=== PATIENT | male | born 1990 | race American Indian/Alaskan Native ===

== ENCOUNTER 2020-07-11 00:28 | Emergency (ER) | payer SELFPAY ==
[2020-07-11] MEDS ORDERED: SUMAtriptan SUCCINATE 25 MG TAB PO ONE (00:53)
[2020-07-11] MEDS ORDERED: diphenhydrAMINE 25 MG CAP PO ONE (00:53)
[2020-07-11] MEDS ORDERED: METOCLOPRAMIDE 10 MG TAB PO ONE (00:53)
--- NOTE | 2020-07-11 00:58 | Emergency Department Report ---
ED Headache HPI - General Chief Complaint: Headache Stated Complaint: HEADACHE Time Seen by Provider: 07/11/20 00:51 - History of Present Illness Initial Comments: Patient is a 30-year-old male presents emergency room with complaints of a headache for 2 weeks. He states that it is frontal and behind the bilateral eyes. He states that he has associated photophobia and nausea. He states he has had 2 episodes of vomiting over the last 2 weeks. He states that he takes czjs-chg-nnrapmr medication with relief but the headache returns. He states that he had the same headaches approximately a year ago. He states that his eye s were also water and his nose begins to run. He denies any fever, vision changes, numbness, weakness, speech disturbance, gait disturbance, neck stiffness, any injury. No past medical history. No allergies to medications. Allergies/Adverse Reactions: Allergies No Known Allergies Allergy (Verified 07/11/20 00:56) Home Medications: Ambulatory Orders SUMAtriptan SUCCINATE [Imitrex] 25 mg PO Q2HR PRN #12 tablet 07/11/20 ED Review of Systems ROS: Stated complaint: HEADACHE Other details as noted in HPI Comment: All other systems reviewed and negative ED Past Medical Hx - Past Medical History Previous Medical History?: No - Surgical History Past Surgical History?: No - Medications Home Medications: Home Medications Medication Instructions Recorded Confirmed Last Taken Type SUMAtriptan SUCCINATE [Imitrex] 25 mg PO Q2HR PRN #12 tablet 07/11/20 Unknown Rx ED Physical Exam - General Limitations: No Limitations General appearance: alert, in no apparent distress - Head Head exam: Present: atraumatic, normocephalic - Eye Eye exam: Present: normal appearance, PERRL, EOMI. Absent: periorbital swelling, periorbital tenderness Pupils: Present: normal accommodation - ENT ENT exam: Present: mucous membranes moist - Neck Neck exam: Present: normal inspection, full ROM. Absent: tenderness, meningismus - Respiratory Respiratory exam: Present: normal lung sounds bilaterally. Absent: respiratory distress, wheezes, rales, rhonchi, stridor, chest wall tenderness, accessory muscle use, decreased breath sounds, prolonged expiratory - Cardiovascular Cardiovascular Exam: Present: regular rate, normal rhythm, normal heart sounds. Absent: systolic murmur, diastolic murmur, rubs, gallop - Neurological Exam Neurological exam: Present: alert, oriented X3, CN II-XII intact, normal gait. Absent: motor sensory deficit - Expanded Neurological Exam Expanded Patient oriented to: Present: person, place, time Speech: Present: fluid speech Cranial nerves: EOM's Intact: Normal, Gag Reflex: Normal Cerebellar function: Finger to Nose: Normal, Heel to [place]: Normal, Romberg: Normal Sensory exam: Upper Extremity Light Touch: Normal, Upper Extremity Pin Prick: Normal, Upper Extremity Temperature: Normal, UE 2 Point Discrimination: Normal, Lower Extremity Light Touch: Normal, Lower Extremity Pin Prick: Normal, Lower Extremity Temperature: Normal, LE 2 Point Discrimination: Normal Motor strength exam: RUE: 5, LUE: 5, RLE: 5, LLE: 5 Best Eye Response ([place]): (4) open spontaneously Best Motor Response ([place]): (6) obeys commands Best Verbal Response ([place]): (5) oriented [place] Total: 15 - Psychiatric Psychiatric exam: Present: normal affect, normal mood - Skin Skin exam: Present: warm, dry, intact ED Course Vital Signs 07/11/20 00:47 Temperature 97.9 F Pulse Rate 67 Respiratory 18 Rate Blood Pressure 137/95 O2 Sat by Pulse 96 Oximetry ED Medical Decision Making - Medical Decision Making Patient is a 30-year-old male presents emergency room with complaints of a headache for 2 weeks. He states that it is frontal and behind the bilateral eyes. He states that he has associated photophobia and nausea. He states he has had 2 episodes of vomiting over the last 2 weeks. He states that he takes nbke-spx-gvtcgmd medication with relief but the headache returns. He states that he had the same headaches approximately a year ago. He states that his eyes were also water and his nose begins to run. He denies any fever, vision c hanges, numbness, weakness, speech disturbance, gait disturbance, neck stiffness, any injury. No past medical history. No allergies to medications. Vitals are stable. No focal neuro deficits on exam, no meningeal signs, no thunderclap headache, no trauma. symptoms appear most consistent with cluster headache. Patient given Imitrex, Reglan, Benadryl while in the emergency department and headache proved and he is feeling much better ready to go home. Patient given prescription for Imitrex. Patient be given primary care follow- up. Discussed the importance of follow-up. Discussed strict return precautions. Advised patient to please take medication as prescribed as needed. Increase your water intake. Follow-up with your primary care doctor. Return emergency room for new or worsening symptoms. Critical care attestation.: If time is entered above; I have spent that time in minutes in the direct care of this critically ill patient, excluding procedure time. ED Disposition Clinical Impression: Headache Qualifiers: Headache type: unspecified Headache chronicity pattern: acute headache Intractability: not intractable Qualified Code(s): R51.9 - Headache, unspecified Disposition: DC-01 TO HOME OR SELFCARE Is pt being admited?: No Does the pt Need Aspirin: No Condition: Stable Instructions: Cluster Headache Additional Instructions: please take medication as prescribed as needed. Increase your water intake. Follow-up with your primary care doctor. Return emergency room for new or worsening symptoms. Prescriptions: SUMAtriptan SUCCINATE [Imitrex] 25 mg PO Q2HR PRN #12 tablet PRN Reason: headache Referrals: MAHOGANY MARVIN MD [Staff Physician] - 3-5 Days [facility] [Provider Group] - 3-5 Days JOSÉ ANTONIO MUELLER MD [Staff Physician] - 3-5 Days Print Language: [place] ISLAND[place]
[2020-07-11 01:50] VITALS: BP 136/90
== END 2020-07-11 01:57 | disposition home or self-care (01) ==
LOC: ED 00:28
DX: R51.9 Headache, unspecified (principal); R11.2 Nausea with vomiting, unspecified; H53.149 Visual discomfort, unspecified; Z79.899 Other long term (current) drug therapy
CPT/HCPCS: 99282

== ENCOUNTER 2020-07-13 14:45 | Emergency (ER) | payer SELFPAY ==
[2020-07-13 15:11] VITALS: BP 116/75
--- NOTE | 2020-07-13 15:23 | Emergency Department Report ---
ED Headache HPI - General Chief Complaint: Headache Stated Complaint: HEADACHES Source: patient Exam Limitations: no limitations - History of Present Illness Initial Comments: 30-year-old -German male presents to the emergency room for persistent headache that he rates a 10 out of 10 and not responding to Imitrex or jdnv-mtg-fjgzmzk medication. Patient was seen here 2 days ago and referred to a primary care provider as well as a neurologist with has not made an appointment for the neurologist. Reports has appointment with Dr. Byron Fisher on Wednesday. Patient denies any weakness. He reported he vomited 1 time last night. He complains of blurred vision breaking out in sweats. He states that he does take medicine for his sinuses but that is not helping. Patient denies any new weaknesses. But reports that he is not able to work secondary to the constant persistent headache. Patient states that the headache will improve a little with the Imitrex but comes right back within 2 to 3 hours. Head Injury Location: global Recent Head Trauma: no recent headache/trauma, frequent headaches Associated Symptoms: flushing, nausea/vomiting, vision changes Allergies/Adverse Reactions: Allergies No Known Allergies Allergy (Verified 07/11/20 00:56) Home Medications: Ambulatory Orders SUMAtriptan SUCCINATE [Imitrex] 25 mg PO Q2HR PRN #12 tablet 07/11/20 ED Review of Systems ROS: Stated complaint: HEADACHES Other details as noted in HPI Comment: All other systems reviewed and negative ED Past Medical Hx - Past Medical History Previous Medical History?: No - Surgical History Past Surgical History?: No - Social History Smoking Status: Never Smoker - Medications Home Medications: Home Medications Medication Instructions Recorded Confirmed Last Taken Type SUMAtriptan SUCCINATE [Imitrex] 25 mg PO Q2HR PRN #12 tablet 07/11/20 Unknown Rx ED Physical Exam - General Limitations: No Limitations General appearance: alert, in no apparent distress - Head Head exam: Present: atraumatic, normocephalic - Eye Eye exam: Present: normal appearance - Neck Neck exam: Present: full ROM - Respiratory Respiratory exam: Absent: accessory muscle use - Cardiovascular Cardiovascular Exam: Present: regular rate, normal rhythm. Absent: systolic murmur, diastolic murmur, rubs, gallop - Expanded Neurological Exam Expanded Cranial nerves: EOM's Intact: Normal, Gag Reflex: Normal, Tongue Deviation: Normal, Nystagmus: Normal, Facial Sensation: Normal, Facial Palsy with Forehead Movement: Normal, Facial Palsy without Forehead Movement: Normal Cerebellar function: Finger to Nose: Normal, Heel to [place]: Normal, Romberg: Normal Upper motor neuron: Ruddy Neglect: Normal, Pronator Drift: Normal, Sensory Extinction: Normal Sensory exam: Upper Extremity Light Touch: Normal, Upper Extremity Pin Prick: Normal, Upper Extremity Temperature: Normal, UE 2 Point Discrimination: Normal, Lower Extremity Light Touch: Normal, Lower Extremity Pin Prick: Normal, Lower Extremity Temperature: Normal, LE 2 Point Discrimination: Normal Motor strength exam: RUE: 5, LUE: 5, RLE: 5, LLE: 5 Best Eye Response ([place]): (4) open spontaneously Best Motor Response ([place]): (6) obeys commands Best Verbal Response ([place]): (5) oriented [place] Total: 15 - Psychiatric Psychiatric exam: Present: normal affect, normal mood - Skin Skin exam: Present: warm, dry, intact, normal color. Absent: rash ED Course Vital Signs 07/13/20 15:07 Temperature 98.1 F Pulse Rate 67 Respiratory 20 Rate Blood Pressure 116/75 O2 Sat by Pulse 99 Oximetry ED Medical Decision Making - Lab Data Result diagrams: 07/13/20 15:39 07/13/20 15:39 - Radiology Data Radiology results: report reviewed Patient: CARLOS GOMES MR#: [id number] : 1990 Acct:[id number] Age/Sex: 30 / M ADM Date: 07/13/20 Loc: ED Attending Dr: Ordering Physician: DAVEY NUNN Date of Service: 07/13/20 Procedure(s): CT head/brain wo con Accession Number(s): [id number] cc: DAVEY NUNN CT head/brain wo con INDICATION: Persistent headache. TECHNIQUE: Routine CT head without contrast. All CT scans at this location are performed using CT dose reduction for ALARA by means of automated exposure control. COMPARISON: None. FINDINGS: BRAIN / INTRACRANIAL CONTENTS: No acute hemorrhage, mass effect, midline shift, or hydrocephalus. No appreciable acute large territorial or lacunar infarct. No chronic infarct or focal atrophy. Normal brain volume and ventricular/sulcal size for age. ORBITS: No significant abnormality of visualized orbits. SINUSES / MASTOIDS: There is extensive fluid and mucosal thickening throughout the paranasal sinuses. There is polypoid mucosal thickening throughout the nasal cavity. There is no appreciable sinus patient's or bone structure. ADDITIONAL FINDINGS: None. IMPRESSION: 1. No acute intracranial abnormality. 2. Extensive polypoid mucosal thickening throughout the paranasal sinuses and nasal cavity likely indicating chronic sinusitis. Underlying acute sinusitis would be difficult to exclude radiographi margot. Signer Name: Michel Friend MD Signed: 07/13/2020 4:47 PM Workstation Name: [id number] Transcribed By: JOSSUE Dictated By: Michel Friend MD Electronically Authenticated By: Michel Friend MD Signed Date/Time: 07/13/201646 DD/ 44 TD/TT: - Medical Decision Making 30-year-old -German male presents to the emergency room for persistent headache that he rates a 10 out of 10 and not responding to Imitrex or vvko-rhn-yhshytv medication. Patient was seen here 2 days ago and referred to a primary care provider as well as a neurologist with has not made an appointment for the neurologist. Reports has appointment with Dr. Byron Fisher on Wednesday. Patient denies any weakness. He reported he vomited 1 time last night. He complains of blurred vision breaking out in sweats. He states that he does take medicine for his sinuses but that is not helping. Patient denies any new weaknesses. But reports that he is not able to work secondary to the constant persistent headache. Patient states that the headache will improve a little with the Imitrex but comes right back within 2 to 3 hours. CBC, CMP, CT of head without contrast. Critical care attestation.: If time is entered above; I have spent that time in minutes in the direct care of this critically ill patient, excluding procedure time. ED Disposition Clinical Impression: Headache, Chronic sinusitis Disposition: - TO HOME OR SELFCARE Is pt being admited?: No Does the pt Need Aspirin: No Condition: Stable Instructions: Sinus Headache, Frfu-di-Fwqn, Sinusitis, Adult, Baoo-wg-Szcs Additional Instructions: CT scan is negative for any masses head bleed. It does show that you have chronic sinusitis. You need to use sqtv-emn-awpkthp Flonase take dbgo-pgv-fmtjomi Zyrtec's or Claritin. Follow-up with your primary care provider and a ear nose and throat provider. Referrals: PRIMARY CARE, [Primary Care Provider] - 3-5 Days DUANE SALGUERO MD [Staff Physician] - 3-5 Days MAHOGANY MARVIN MD [Staff Physician] - 3-5 Days Forms: Work/School Release Form(ED)
[2020-07-13 16:00] LABS: Basophils # (Auto) 0.1 K/mm3 (0.0-0.1); Basophils % (Auto) 0.8 % (0.0-1.8); Eosinophils # (Auto) 0.8 K/mm3 (0.0-0.4); Eosinophils % (Auto) 12.2 % (0.0-4.3); Hematocrit 42.2 % (35.5-45.6); Hemoglobin 14.1 gm/dl (11.8-15.2); Lymphocytes # (Auto) 2.2 K/mm3 (1.2-5.4); Lymphocytes % (Auto) 33.7 % (13.4-35.0); Mean Corpuscular HGB Conc 34 % (32-34); Mean Corpuscular Volume 98 fl (84-94); Monocytes # (Auto) 0.3 K/mm3 (0.0-0.8); Monocytes % (Auto) 4.2 % (0.0-7.3); Platelet Count 179 K/mm3 (140-440); Red Blood Count 4.31 M/mm3 (3.65-5.03); Red Cell Distribution Width 13.6 % (13.2-15.2)
[2020-07-13 16:25] LABS: Alanine Aminotransferase 24 units/L (7-56); Albumin 4.1 g/dL (3.9-5); Blood Urea Nitrogen 8 mg/dL (9-20); Calcium 8.7 mg/dL (8.4-10.2); Hemolysis Index 2
[2020-07-13 16:32] LABS: BUN/Creatinine Ratio 11
--- NOTE | 2020-07-13 16:51 | Cat Scan Report ---
CT head/brain wo con INDICATION: Persistent headache. TECHNIQUE: Routine CT head without contrast. All CT scans at this location are performed using CT dos e reduction for ALARA by means of automated exposure control. COMPARISON: None. FINDINGS: BRAIN / INTRACRANIAL CONTENTS: No acute hemorrhage, mass effect, midline shift, or hydrocephalus. No appreciable acute large territorial or lacunar infarct. No chronic infarct or focal atrophy. Normal b rain volume and ventricular/sulcal size for age. ORBITS: No significant abnormality of visualized orbits. SINUSES / MASTOIDS: There is extensive fluid and mucosal thickening throughout the paranasal sinuses. There is polypoid mucosal thickening throughout the nasal cavity. There is no appreciable sinus shane ent's or bone structure. ADDITIONAL FINDINGS: None. IMPRESSION: 1. No acute intracranial abnormality. 2. Extensive polypoid mucosal thickening throughout the paranasal sinuses and nasal cavity likely ind icating chronic sinusitis. Underlying acute sinusitis would be difficult to exclude radiographically. Signer Name: Michel Friend MD Signed: 07/13/2020 4:47 PM Workstation Name: [id number]
== END 2020-07-13 17:31 | disposition home or self-care (01) ==
LOC: ED 14:45
DX: J32.9 Chronic sinusitis, unspecified (principal); R51.9 Headache, unspecified; Z79.899 Other long term (current) drug therapy
CPT/HCPCS: 36415; 70450; 80053; 85025

== ENCOUNTER 2020-07-15 06:18 | Emergency (ER) | payer SELFPAY ==
[2020-07-15 06:52] VITALS: BP 123/68
[2020-07-15] MEDS ORDERED: METOCLOPRAMIDE 10 MG/2 ML INJ IV STA (07:25)
[2020-07-15] MEDS ORDERED: KETOROLAC 30 MG/1 ML INJ IV STA (07:25)
[2020-07-15] MEDS ORDERED: diphenhydrAMINE 50 MG/ML VIAL IV STA (07:25)
[2020-07-15] MEDS ORDERED: SODIUM CHLORIDE 0.9% 1000 ML 1,000 ML IV ONE (07:25)
--- NOTE | 2020-07-15 07:32 | Emergency Department Report ---
ED Headache HPI - General Chief Complaint: Headache Stated Complaint: HEADACHE Time Seen by Provider: 07/15/20 07:26 - History of Present Illness Initial Comments: 30-year-old -[place] male presents emerged department complaining of continued persistent headache which he rates a 10 out of 10 and is not responding to the Imitrex or the Flonase/Claritin he was advised to get vlpm-hsg-dozzjim on his last visit. He was initially seen in the emergency department and evaluated on July 11 and then again [address] scan was obtained to 2 days ago and was normal with the exception of chronic sinusitis with an acute development. Bowel sounds he was discharged home with medications and advised to follow-up with primary care as well as a neurologist however has not yet been able to make the appointment with either. Headache is dull and and and throbbing in the frontal sinus region and occasionally associated with blurred vision. Reports continued episodes of vomiting since his last visit 3-4 episodes primarily when he eats a meal. As stated on his previous evaluation when he utilizes Imitrex he gets minimal movement with headache return in 2 to 3 hours. Timing/Duration: 1 week Head Injury Location: frontal Recent Head Trauma: frequent headaches Associated Symptoms: facial pain, nausea/vomiting, nasal congestion, nasal drainage, sinus infection, vision changes Allergies/Adverse Reactions: Allergies No Known Allergies Allergy (Verified 07/11/20 00:56) Home Medications: Ambulatory Orders SUMAtriptan SUCCINATE [Imitrex] 25 mg PO Q2HR PRN #12 tablet 07/11/20 Amoxicillin/Potassium Clav [Augmentin 875-125 Tablet] 1 each PO BID #20 tablet 07/15/20 Butalb/Acetaminophen/Caffeine [Fioricet 50-300-40 mg CAP] 1 cap PO Q6HR PRN #20 cap 07/15/20 predniSONE [Deltasone] 20 mg PO QDAY #7 tab 07/15/20 ED Review of Systems ROS: Stated complaint: HEADACHE Other details as noted in HPI Comment: All other systems reviewed and negative ED Past Medical Hx - Past Medical History Previous Medical History?: No - Surgical History Past Surgical History?: No - Social History Smoking Status: Never Smoker - Medications Home Medications: Home Medications Medication Instructions Recorded Confirmed Last Taken Type SUMAtriptan SUCCINATE [Imitrex] 25 mg PO Q2HR PRN #12 tablet 07/11/20 Unknown Rx Amoxicillin/Potassium Clav 1 each PO BID #20 tablet 07/15/20 Unknown Rx [Augmentin 875-125 Tablet] Butalb/Acetaminophen/Caffeine 1 cap PO Q6HR PRN #20 cap 07/15/20 Unknown Rx [Fioricet 50-300-40 mg CAP] predniSONE [Deltasone] 20 mg PO QDAY #7 tab 07/15/20 Unknown Rx ED Physical Exam - General Limitations: No Limitations General appearance: alert, in no apparent distress - Head Head exam: Present: atraumatic, normocephalic - Eye Eye exam: Present: normal appearance, PERRL, EOMI. Absent: conjunctival injection, nystagmus, periorbital tenderness, other Pupils: Present: normal accommodation - ENT ENT exam: Present: normal exam, mucous membranes moist, other (Extensive mucosal thickening to the nasal sinuses left greater than right minimal air allowed the past to the right nasal cavity. Tenderness to percussion to the maxillary and frontal sinuses some tenderness to the ethmoid region as well.) - Neck Neck exam: Present: normal inspection, full ROM - Respiratory Respiratory exam: Present: normal lung sounds bilaterally. Absent: respiratory distress, wheezes, rales, chest wall tenderness, accessory muscle use - Cardiovascular Cardiovascular Exam: Present: regular rate, normal rhythm. Absent: systolic murmur, diastolic murmur, rubs, gallop - GI/Abdominal GI/Abdominal exam: Present: soft, normal bowel sounds - Rectal Rectal exam: Present: deferred - Extremities Exam Extremities exam: Present: normal inspection, normal capillary refill - Back Exam Back exam: Present: normal inspection. Absent: CVA tenderness (R), CVA tenderness (L) - Neurological Exam Neurological exam: Present: alert, oriented X3, CN II-XII intact - Psychiatric Psychiatric exam: Present: normal affect, normal mood. Absent: anxious, flat affect - Skin Skin exam: Present: warm, dry, intact, normal color. Absent: rash, diaphoretic, erythema, ecchymosis ED Course Vital Signs 07/15/20 06:51 Temperature 98.1 F Pulse Rate 72 Respiratory 20 Rate Blood Pressure 123/68 [Right] O2 Sat by Pulse 98 Oximetry Critical care attestation.: If time is entered above; I have spent that time in minutes in the direct care of this critically ill patient, excluding procedure time. ED Disposition Clinical Impression: Headache Disposition: DC-01 TO HOME OR SELFCARE Is pt being admited?: No Does the pt Need Aspirin: No Condition: Stable Prescriptions: Amoxicillin/Potassium Clav [Augmentin 875-125 Tablet] 1 each PO BID #20 tablet predniSONE [Deltasone] 20 mg PO QDAY #7 tab Butalb/Acetaminophen/Caffeine [Fioricet 50-300-40 mg CAP] 1 cap PO Q6HR PRN #20 cap PRN Reason: Headache Referrals: PRIMARY CAREMD [Primary Care Provider] - 3-5 Days DAIN BASS MD [Staff Physician] - 3-5 Days DUANE SALGUERO MD [Staff Physician] - 3-5 Days
== END 2020-07-15 09:10 | disposition home or self-care (01) ==
LOC: ED 06:18
DX: R51.9 Headache, unspecified (principal); Z79.899 Other long term (current) drug therapy
CPT/HCPCS: 96361; 96374; 96375; 99282; J1200; J1885; J2765; J7030